=== PATIENT | male | born 1995 | race Caucasian/White ===

== ENCOUNTER 2017-01-17 20:25 | Emergency (ER) | payer SELFPAY ==
[2017-01-17 20:30] VITALS: BP 130/75
--- NOTE | 2017-01-17 20:33 | ER Document Report ---
ED Medical Screen (RME) - General Stated Complaint: RIGHT HAND INJURY Mode of Arrival: Ambulatory Information source: Patient Notes: pt punched a wall approximately 1 hours ago. pt is right handed. Obvious swelling noted. Declines pain medication. I have greeted and performed a rapid initial assessment of this patient. A comprehensive ED assessment and evaluation of the patient, analysis of test results and completion of the medical decision making process will be conducted by additional ED providers. TRAVEL OUTSIDE OF THE [place] IN LAST 30 DAYS: No - Related Data Allergies/Adverse Reactions: No Known Allergies Allergy (Verified 01/05/16 20:34) Past Medical History - Immunizations Immunizations up to date: Yes Hx Diphtheria, Pertussis, Tetanus Vaccination: Yes Physical Exam - Vital signs Vitals: Temp Pulse Resp BP Pulse Ox 98.9 F 88 16 130/75 H 100 01/17/17 20:29 01/17/17 20:29 01/17/17 20:29 01/17/17 20:29 01/17/17 20:29 Course - Vital Signs Vital signs: Temp Pulse Resp BP Pulse Ox 98.9 F 88 16 130/75 H 100 01/17/17 20:29 01/17/17 20:29 01/17/17 20:29 01/17/17 20:29 01/17/17 20:29
--- NOTE | 2017-01-17 23:52 | ER Document Report ---
ED General - General Chief Complaint: Hand Injury Stated Complaint: RIGHT HAND INJURY Mode of Arrival: Ambulatory Notes: Patient is a 21-year-old male who punched a wall. He says since then his right third MCP joints all swallowed whenever he flexes his middle finger. He denies any other injuries. No other complaints. No weakness or numbness into his hand or fingers. TRAVEL OUTSIDE OF THE [place] IN LAST 30 DAYS: No - Related Data Allergies/Adverse Reactions: No Known Allergies Allergy (Verified 01/05/16 20:34) Past Medical History - General Information source: Patient - Social History Smoking Status: Current Every Day Smoker Chew tobacco use (# tins/day): No Frequency of alcohol use: None Drug Abuse: None Family History: Reviewed & Not Pertinent Patient has suicidal ideation: No Patient has homicidal ideation: No Renal/ Medical History: Denies: Hx Peritoneal Dialysis - Immunizations Immunizations up to date: Yes Hx Diphtheria, Pertussis, Tetanus Vaccination: Yes Review of Systems - Review of Systems Notes: My Normal Review Basic REVIEW OF SYSTEMS: CONSTITUTIONAL : Denies fever, chills, or sweats. Denies recent illness. MUSCULOSKELETAL: Pain and swelling over the right middle MCP joint. SKIN: No laceration ALL OTHER SYSTEMS REVIEWED AND NEGATIVE. Physical Exam - Vital signs Vitals: Temp Pulse Resp BP Pulse Ox 98.9 F 88 16 130/75 H 100 01/17/17 20:29 01/17/17 20:29 01/17/17 20:29 01/17/17 20:29 01/17/17 20:29 - Notes Notes: General Appearance: Well nourished, alert, cooperative, no acute distress, no obvious discomfort. Well-appearing. Vitals: reviewed, See vital signs table. Extremities: strength 5/5 in all extremities, good pulses in all extremities, patient has full flexion-extension of all fingers of the right hand. When he flexes the third right digit the extensor tendon dislocates laterally off the MCP., no edema. Skin: warm, dry, appropriate color, no rash Neuro: speech clear, oriented x 3, normal affect, responds appropriately to questions. Good distal sensation in the hand. Course - Vital Signs Vital signs: Temp Pulse Resp BP Pulse Ox 98.9 F 88 16 130/75 H 100 01/17/17 20:29 01/17/17 20:29 01/17/17 20:29 01/17/17 20:29 01/17/17 20:29 - Transfer of Care Notes: 01/17/17 23:57 Patient's x-rays are negative for any fracture. He has no laceration. His extensor tendon will dislocate over the MCP bilaterally never he flexes the third digit. We'll splint his third digit with aluminum finger splint and him follow-up with orthopedics. I encouraged him to return to the ER if has any further concerns. Patient agrees with plan will be discharged home. Dictation of this chart was performed using voice recognition software; therefore, there may be some unintended grammatical errors. Discharge - Discharge Clinical Impression: extensor tendon dislocation Sprain of finger, right Qualifiers: Encounter type: initial encounter Qualified Code(s): S63.619A - Unspecified sprain of unspecified finger, initial encounter Condition: Good Disposition: HOME, SELF-CARE Additional Instructions: Please wear the splint on your finger to help prevent further damage to your extensor tendon and to allow it to heal. Please follow up with the orthopedic doctor, Dr. Novak, for reevaluation. Return to the ER if you have any further concerns. Referrals: IDALIA NOVAK DO [ACTIVE STAFF] - Follow up in 3-5 days
== END 2017-01-18 00:08 | disposition home or self-care (01) ==
LOC: ER 20:25
PROC: 2W3JX1Z Immobilization of Right Finger using Splint (ICD-10-PCS; principal; 2017-01-17)
DX: S63.619A Unspecified sprain of unspecified finger, initial encounter (principal); X58.XXXA Exposure to other specified factors, initial encounter; F17.200 Nicotine dependence, unspecified, uncomplicated
CPT/HCPCS: 99283

== ENCOUNTER 2020-03-14 12:22 | Emergency (ER) | payer SELFPAY ==
[2020-03-14 12:26] VITALS: BP 122/75
[2020-03-14] MEDS ORDERED: CEFTRIAXONE INJ 1000 MG VIAL IM ONE (12:29)
[2020-03-14] MEDS ORDERED: LIDOCAINE 1% INJ-PF (10 MG/ML) 30 ML SDV INJ ONE (12:29)
--- NOTE | 2020-03-14 12:50 | ER Document Report ---
HPI - HPI Time Seen by Provider: 03/14/20 12:26 Notes: 24-year-old male presents to the emergency room for complaints of right earlobe pain for the last couple of days, states that has been bothersome for him for the last year but did not start bothering him until 2 days ago. Reports redness, swelling, pain over. His tried an antibiotic that his girlfriend gave him but it did not really help. Patient states he has had calcium deposits in his earlobe but he keeps playing with his earlobe and noticed that is become red and swollen. Pain is 1 out of 5, throbbing. No [id number] medications for his pain is been tried. Denies fevers, chills, chest pain,palpitations, shortness of breath, dyspnea, nausea, vomiting, diarrhea, abdominal pain, hematuria,blurred vision, double vision, loss of vision, speech changes, LH, dizziness, syncope, headaches, wheezing, ST, URI, neck pain, weakness, bowel or bladder dysfunction, saddle anesthesia, numbness or tingling in bilateral upper or lower extremities equally, muscle paralysis, weakness in bilateral upper or lower extremities equally or rash. REVIEW OF SYSTEMS:reviewed vital signs by RN CONSTITUTIONAL : Denies fever, chills, or sweats. Denies recent illness. EENT: Denies eye, ear, throat, or mouth pain or symptoms. Denies nasal or sinus congestion or discharge. Denies throat, tongue, or mouth swelling or difficulty swallowing. CARDIOVASCULAR: Denies chest pain. Denies palpitations or racing or irregular heart beat. Denies ankle edema. RESPIRATORY: Denies cough, cold, or chest congestion. Denies shortness of breath, difficulty breathing, or wheezing. GASTROINTESTINAL: Denies abdominal pain or distention. Denies nausea, vomiting, or diarrhea. Denies blood in vomitus, stools, or per rectum. Denies black, tarry stools. Denies constipation. GENITOURINARY: Denies difficulty urinating, painful urination, burning, frequency, blood in urine, or discharge. MUSCULOSKELETAL: Denies back or neck pain or stiffness. Denies joint pain or swelling. SKIN: Right earlobe redness and pain. denies rash, lesions or sores. HEMATOLOGIC : Denies easy bruising or bleeding. LYMPHATIC: Denies swollen, enlarged glands. NEUROLOGICAL: Denies confusion or altered mental status. Denies passing out or loss of consciousness. Denies dizziness or lightheadedness. Denies headache. Denies weakness or paralysis or loss of use of either side. Denies problems with gait or speech. Denies sensory loss, numbness, or tingling. Denies seizures. PSYCHIATRIC: Denies anxiety or stress. Denies depression, suicidal ideation, or homicidal ideation. ALL OTHER SYSTEMS REVIEWED AND NEGATIVE. Dictation was performed using [employer] voice recognition software PHYSICAL EXAMINATION: GENERAL: Well-appearing, well-nourished and in no acute distress. HEAD: Atraumatic, normocephalic. EYES: Pupils equal round and reactive to light, extraocular movements intact, sclera anicteric, conjunctiva are normal. ENT: right earlobe with erythema, induration and warmth to touch. no fluctance. no open wounds or drainage. External auditory canals without erythema induration, bilateral TMs pearly workman and intact. nares patent, oropharynx clear without exudates. Moist mucous membranes. Negative mastoid pain on palpation bilaterally. NECK: Normal range of motion, supple without lymphadenopathy LUNGS: Breath sounds clear to auscultation bilaterally and equal. No wheezes rales or rhonchi. HEART: Regular rate and rhythm without murmurs ABDOMEN: Soft, nontender, nondistended abdomen. No guarding, no rebound. No masses appreciated. Musculoskeletal: Normal range of motion, no pitting or edema. No cyanosis. NEUROLOGICAL: Cranial nerves grossly intact. Normal speech, normal gait. Normal sensory, motor exams PSYCH: Normal mood, normal affect. SKIN: Warm, Dry, normal turgor, no rashes or lesions noted. Past Medical History - Social History Smoking Status: Unknown if Ever Smoked Family History: Reviewed & Not Pertinent Renal/ Medical History: Denies: Hx Peritoneal Dialysis - Immunizations Immunizations up to date: Yes Hx Diphtheria, Pertussis, Tetanus Vaccination: Yes Vertical Provider Document - CONSTITUTIONAL Agree With Documented VS: Yes Exam Limitations: No Limitations General Appearance: WD/WN - INFECTION CONTROL TRAVEL OUTSIDE OF THE [place] IN LAST 30 DAYS: No Course - Re-evaluation Re-evalutation: 03/14/20 13:06 Afebrile vital stable no distress. Nurses notes reviewed. Discussed with patient that he needs does need to start oral outpatient antibiotic therapy but will also be given a gram of Rocephin IM today to get the antibiotic in his system. Discussed with him he needs to apply heat 20 minutes on 20 minutes off several times a day, do not manipulate his ear earlobe. Advise after performing a Medical Screening Examination, I estimate there is LOW risk for ACUTE GLAUCOM A, TEMPORAL ARTERITIS, MENINGITIS, INCRANIAL HEMORRHAGE, or ISCHEMIC STROKE thus I consider the discharge disposition reasonable. I have reevaluated this patient multiple times and no significant life threatening changes are noted. The patient and I have discussed the diagnosis and risks, and we agree with discharging home with close follow-up with the understanding that symptoms and presentations can change. We also discussed returning to the Emergency Department immediately if new or worsening symptoms occur. We have discussed the symptoms which are most concerning (e.g., changing or worsening symptoms, new numbness or weakness, vomiting, fever) that necessitate immediate return. - Vital Signs Vital signs: Temp Pulse Resp BP Pulse Ox 97.7 F 63 14 122/75 100 03/14/20 12:25 03/14/20 12:25 03/14/20 12:25 03/14/20 12:25 03/14/20 12:25 Discharge - Discharge Clinical Impression: Infection of right earlobe Condition: Stable Disposition: HOME, SELF-CARE Instructions: Cellulitis ([facility]), MRSA Cellulitis ([facility]) Additional Instructions: Warm compress to site 20 minutes on 20 minutes off several times a day. Take antibiotics as directed with food. Reevaluate within 24 to 48 hours at doctor's office or return to the emergency room. Return immediately for any new or worsening symptoms. Follow up with primary care provider, call tomorrow to make followup appointment. Prescriptions: Clindamycin HCl 300 mg PO Q6H #28 capsule Forms: Return to Work Referrals: ODILIA OWENS MD [COMMUNITY BASED STAFF] - Follow up as needed
== END 2020-03-14 13:00 | disposition home or self-care (01) ==
LOC: ER 12:22
DX: H60.391 Other infective otitis externa, right ear (principal)
CPT/HCPCS: 99282; J3490; J0696

== ENCOUNTER 2020-03-15 10:54 | Emergency (ER) | payer OTHER ==
[2020-03-15 10:59] VITALS: BP 134/83
--- NOTE | 2020-03-15 11:01 | ER Document Report ---
ED Medical Screen (RME) - General Chief Complaint: Ear Pain Stated Complaint: EAR PAIN Time Seen by Provider: 03/15/20 10:58 Mode of Arrival: Ambulatory Information source: Patient Notes: 24-year-old male presents with an abscess to his right earlobe. He was evaluated here yesterday treated with antibiotics and given an injection of antibiotics. He was instructed to return today to have the area lanced. He reports some erythema now going down his neck. Denies fever vomiting diarrhea. Reports he is always had a bubble on his earlobe but now it has gotten larger since Wednesday. I have greeted and performed a rapid initial assessment of this patient. A comprehensive ED assessment and evaluation of the patient, analysis of test results and completion of the medical decision making process will be conducted by additional ED providers. TRAVEL OUTSIDE OF THE [place] IN LAST 30 DAYS: No - Related Data Allergies/Adverse Reactions: No Known Allergies Allergy (Verified 01/05/16 20:34) Past Medical History Renal/ Medical History: Denies: Hx Peritoneal Dialysis - Immunizations Immunizations up to date: Yes Hx Diphtheria, Pertussis, Tetanus Vaccination: Yes Physical Exam - Vital signs Vitals: Temp Pulse Resp BP Pulse Ox 97.9 F 74 16 134/83 H 99 03/15/20 10:57 03/15/20 10:57 03/15/20 10:57 03/15/20 10:57 03/15/20 10:57 Course - Vital Signs Vital signs: Temp Pulse Resp BP Pulse Ox 97.9 F 74 16 134/83 H 99 03/15/20 10:57 03/15/20 10:57 03/15/20 10:57 03/15/20 10:57 03/15/20 10:57
[2020-03-15] MEDS ORDERED: LIDOCAINE 1% INJ-PF (10 MG/ML) 30 ML SDV INJ ONE (11:35)
--- NOTE | 2020-03-15 11:40 | ER Document Report ---
ED ENT - General Chief Complaint: Ear Pain Stated Complaint: EAR PAIN Time Seen by Provider: 03/15/20 10:58 Mode of Arrival: Ambulatory Notes: CHIEF COMPLAINT: Right earlobe abscess HPI: 24-year-old male presenting to the emergency department for reevaluation of right earlobe pain and swelling. States he was seen here yesterday for same, prescribed antibiotics but swelling is worse today. No fever. States he had always had a small bump on the right earlobe ROS: See HPI - all other systems were reviewed and are otherwise negative Constitutional: no fever Eyes: no drainage ENT: no runny nose, no sore throat Integumentary: Positive rash, positive abscess Allergy: no hives MEDICATIONS: I agree with the patient medications as charted by the RN. ALLERGIES: I agree with the allergies as charted by the RN. PAST MEDICAL HISTORY/PAST SURGICAL HISTORY: Reviewed and agree as charted by RN. SOCIAL HISTORY: Reviewed and agree as charted by RN. FAMILY HISTORY: No significant familial comorbid conditions directly related to patient complaint EXAM: Reviewed vital signs as charted by RN. CONSTITUTIONAL: Alert and oriented and responds appropriately to questions. Well-appearing; well-nourished HEAD: Normocephalic; atraumatic EYES: PERRL; Conjunctivae clear, sclerae non-icteric ENT: normal nose; no rhinorrhea; moist mucous membranes; pharynx without lesions noted, no uvula edema or deviation, no tonsillar hypertrophy, phonation normal. Significant soft tissue swelling with erythema to the right ear most specifically at the earlobe with a large fluctuant abscess to the posterior aspect of the ear measuring 2 cm diameter. There is erythema extending over the postauricular region and down the lateral aspect of the neck. NECK: Supple without meningismus; non-tender; positive posterior cervical lym phadenopathy, no masses CARD: Capillary refill less than 3 seconds; symmetric distal pulses RESP: Normal chest excursion without splinting or tachypnea ABD/GI: non-distended. BACK: The back appears normal EXT: Normal ROM in all joints; no cyanosis, no effusions, no edema SKIN: Normal color for age and race; warm; dry; good turgor NEURO: Moves all extremities equally; Motor and sensory function intact PSYCH: The patient's mood and manner are appropriate. Grooming and personal hygiene are appropriate. MDM: 24-year-old male with what is likely an infected sebaceous cyst on the posterior right earlobe with a cellulitis extending onto the neck. On review of the records patient was given Rocephin yesterday and started on clindamycin. This area needs incision and drainage to facilitate healing. We will plan to open up the wound area on the posterior aspect of the ear, insert packing to facilitate drainage, continue on clindamycin recheck 48 hours TRAVEL OUTSIDE OF THE [place] IN LAST 30 DAYS: No - Related Data Allergies/Adverse Reactions: No Known Allergies Allergy (Verified 01/05/16 20:34) Home Medications: abx Past Medical History - General Information source: Patient - Social History Smoking Status: Current Every Day Smoker Family History: Reviewed & Not Pertinent Patient has homicidal ideation: No Renal/ Medical History: Denies: Hx Peritoneal Dialysis - Immunizations Immunizations up to date: Yes Hx Diphtheria, Pertussis, Tetanus Vaccination: Yes Physical Exam - Vital signs Vitals: Temp Pulse Resp BP Pulse Ox 97.9 F 74 16 134/83 H 99 03/15/20 10:57 03/15/20 10:57 03/15/20 10:57 03/15/20 10:57 03/15/20 10:57 Course - Vital Signs Vital signs: Temp Pulse Resp BP Pulse Ox 97.9 F 74 16 134/83 H 99 03/15/20 10:59 03/15/20 10:57 03/15/20 10:57 03/15/20 10:57 03/15/20 10:57 Procedures - Incision and Drainage Right Posterior Face Time completed: 11:52 Type: Simple Anesthetic type: 1% Lidocaine mL's of anesthetic: 1 - Posterior right ear lobe Blade size: 11 I&D procedure: Chlorprep applied, Iodoform packing placed, Sterile dressing applied Incision Method: Incision made by scalpel Amount/type of drainage: 3 mL, sebaceous and purulent Notes: 03/15/20 11:52 Incision made to posterior earlobe to preserve appearance of the exterior ear Discharge - Discharge Clinical Impression: Abscess of right earlobe Condition: Stable Disposition: HOME, SELF-CARE Additional Instructions: 1. packing out in 2-3 days 2. follow up with your primary care provider for further evaluation in 2-3 days 3. medicines as prescribed or take Motrin for pain 4. return sooner for any worsening condition, increasing redness or onset of fever 5. apply warm compresses to the wound area 2-3 times daily Prescriptions: Hydrocodone/Acetaminophen [Drift 5-325 mg Tablet] 1 tab PO Q4 PRN #15 tablet PRN Reason:
[2020-03-15] MEDS ORDERED: ONDANSETRON 4 MG TAB.RAPDIS PO ONE (11:51)
== END 2020-03-15 12:00 | disposition home or self-care (01) ==
LOC: ER 10:54
DX: H60.01 Abscess of right external ear (principal); F17.200 Nicotine dependence, unspecified, uncomplicated
CPT/HCPCS: 99283; 10060; S0119; J3490

== ENCOUNTER 2020-09-29 22:42 | Emergency (ER) | payer SELFPAY ==
[2020-09-29 22:54] VITALS: BP 118/56
[2020-09-29] MEDS ORDERED: PENICILLIN V POTASSIUM 500 MG TABLET PO ONE (23:42)
--- NOTE | 2020-09-29 23:46 | ER Document Report ---
HPI - HPI Patient complains to provider of: Dental pain Time Seen by Provider: 09/29/20 23:37 Context: 25-year-old male with no previous medical problems presents to the emergency room complaining of worsening sudden onset of left lower posterior dental pain that started around 3 PM today. States is a history of the same about 4 months ago was seen but the dentist prescribed antibiotics symptoms got better. States he needs to have his wisdom teeth extracted but at this time cannot afford to see an oral surgeon. Denies any fevers. Eating and drinking okay. States it is painful to chew. Took ibuprofen prior to arrival with some relief. Associated Symptoms: None Exacerbated by: Food Relieved by: Other - Ibuprofen Similar symptoms previously: Yes - Similar symptoms 4 months ago. Recently seen / treated by doctor: No - ROS Systems Reviewed and Negative: Yes All other systems reviewed and negative - CONSTITUTIONAL Constitutional: DENIES: Fever - EENT EENT: REPORTS: Ear Pain. DENIES: Sore Throat Notes: Dental pain - NEURO Neurology: DENIES: Headache - RESPIRATORY Respiratory: DENIES: Trouble Breathing, Coughing - REPRODUCTIVE Reproductive: REPORTS: : - DERM Skin Color: Normal, [place] Skin Problems: None Past Medical History - General Information source: Patient - Social History Smoking Status: Current Every Day Smoker Frequency of alcohol use: None Drug Abuse: None Family History: Reviewed & Not Pertinent Renal/ Medical History: Denies: Hx Peritoneal Dialysis - Immunizations Immunizations up to date: Yes Hx Diphtheria, Pertussis, Tetanus Vaccination: Yes Vertical Provider Document - CONSTITUTIONAL Agree With Documented VS: Yes Exam Limitations: No Limitations General Appearance: Mild Distress - INFECTION CONTROL TRAVEL OUTSIDE OF THE [place] IN LAST 30 DAYS: No - HEENT HEENT: Atraumatic, Normocephalic. negative: Pharyngeal Exudate, Pharyngeal Tenderness, Pharyngeal Erythema, Tympanic Membrane Red, Tympanic Membrane B ulging Notes: Left lower posterior wisdom tooth is tender to palpation. It is discolored. There is swelling and erythema around the tooth. Non fluctuant abscess is noted. - NECK Neck: Normal Inspection, Supple. negative: Lymphadenopathy-Left, Lymphadenopathy-Right - RESPIRATORY Respiratory: Breath Sounds Normal, No Respiratory Distress - CARDIOVASCULAR Cardiovascular: Regular Rate, Regular Rhythm, No Murmur - NEURO Level of Consciousness: Awake, Alert, Appropriate Motor/Sensory: No Motor Deficit, No Sensory Deficit - DERM Integumentary: Warm, Dry, No Rash Course - Re-evaluation Re-evalutation: 09/29/20 23:44 Reviewed diagnosis with patient. Counseled to continue with Tylenol and or Motrin as needed for pain. Antibiotics as prescribed. Counseled on the importance of outpatient follow-up with a dentist as soon as possible. Avoid foods with nuts or seeds. Patient was given strict return to the emergency room guidelines. Return for any new or worsening symptoms. All questions were answered. Patient verbalized understanding and agrees with plan of care. - Vital Signs Vital signs: Temp Pulse Resp BP Pulse Ox 98.2 F 73 16 118/56 L 98 09/29/20 22:54 09/29/20 22:54 09/29/20 22:54 09/29/20 22:54 09/29/20 22:54 Discharge - Discharge Clinical Impression: Pain, dental, Dental abscess Condition: Stable Disposition: HOME, SELF-CARE Instructions: Dental Infection or Abscess ([facility]), Penicillin V K ([facility]), Toothache ([facility]) Additional Instructions: Antibiotics as prescribed. Continue with Tylenol and or Motrin as needed for pain. Follow-up with a dentist as soon as possible. Avoid any foods with nuts or seeds. Return to the emergency room for any new or worsening symptoms. Prescriptions: Penicillin V Potassium [Penicillin Vk 500 mg Tablet] 500 mg PO QID #40 tablet Referrals: [facility] [Provider Group] - Follow up as needed
== END 2020-09-29 23:50 | disposition home or self-care (01) ==
LOC: ER 22:42
DX: K04.7 Periapical abscess without sinus (principal); F17.200 Nicotine dependence, unspecified, uncomplicated
CPT/HCPCS: 99283